=== PATIENT | female | born 1980 | race Caucasian/White ===

== ENCOUNTER 2019-05-09 18:50 | Emergency (ER) | payer BC ==
[~2019-05-09] VITALS: Ht 175.3 cm; Wt 92.7 kg
[2019-05-09] MEDS ORDERED: NORCO 325 MG-51 TA1 PO (19:51)
[2019-05-09] MEDS ORDERED: AMOXICILLIN AND1 TA2 PO (19:51)
[2019-05-09 20:22] VITALS: BP 144/84
== END 2019-05-09 20:27 | disposition home or self-care (01) ==
LOC: ED 18:50
DX: S61.452A Open bite of left hand, initial encounter (principal); Z23 Encounter for immunization; W54.0XXA Bitten by dog, initial encounter; Y92.009 Unspecified place in unspecified non-institutional (private) residence as the place of occurrence of the external cause
CPT/HCPCS: 90715; J1885

== ENCOUNTER → 2020-01-28 | Outpatient (CLI) | payer BC ==
[~2020-01-28] MED LIST: AMOXICILLIN AND1 TA2 PO; NORCO 325 MG-51 TA1 PO
== END ==
LOC: MAMMO 08:30
DX: Z12.31 Encounter for screening mammogram for malignant neoplasm of breast (principal)

== ENCOUNTER → 2020-11-03 | Outpatient (CLI) | payer BC | LOC: MAMMO 08:30 | DX: Z12.31 Encounter for screening mammogram for malignant neoplasm of breast (principal) ==